=== PATIENT | female | born 1970 | race American Indian/Alaskan Native ===

== ENCOUNTER 2020-12-27 06:43 | Inpatient (IN) | payer MEDICARE ==
[2020-12-26 11:03] LABS: Basophils % (Auto) 0.3 % (0.0-1.8); Eosinophils # (Auto) 0.1 K/mm3 (0.0-0.4); Eosinophils % (Auto) 1.6 % (0.0-4.3); Hematocrit 34.3 % (30.3-42.9); Hemoglobin 12.1 gm/dl (10.1-14.3); Lymphocytes # (Auto) 1.5 K/mm3 (1.2-5.4); Lymphocytes % (Auto) 29.4 % (13.4-35.0); Mean Corpuscular HGB Conc 35 % (30-34); Mean Corpuscular Volume 83 fl (79-97); Monocytes # (Auto) 0.3 K/mm3 (0.0-0.8); Monocytes % (Auto) 6.1 % (0.0-7.3); Platelet Count 401 K/mm3 (140-440); Red Blood Count 4.14 M/mm3 (3.65-5.03); Red Cell Distribution Width 14.5 % (13.2-15.2)
[2020-12-26 11:22] LABS: Alanine Aminotransferase 20 units/L (7-56); Albumin 3.8 g/dL (3.9-5); Blood Urea Nitrogen 9 mg/dL (7-17); Hemolysis Index 0
[2020-12-26 11:24] LABS: BUN/Creatinine Ratio 15
--- NOTE | 2020-12-26 14:07 | Anesthesia Consultation ---
Anesthesia Consult and Med Hx Date of service: 12/27/20 - Airway Anesthetic Teeth Evaluation: Good ROM Head & Neck: Adequate Mental/Hyoid Distance: Adequate Mallampati Class: Class II Intubation Access Assessment: Probably Good - Pulmonary Exam CTA: Yes - Cardiac Exam Cardiac Exam: RRR - Pre-Operative Health Status ASA Pre-Surgery Classification: ASA2 Proposed Anesthetic Plan: General Nerve Block: TAP - Pulmonary Hx Smoking: No Hx Respiratory Symptoms: No - Cardiovascular System Hx Hypertension: No - Central Nervous System CVA: No - Endocrine Hx Renal Disease: No Hx Liver Disease: No Hx Insulin Dependent Diabetes: No Hx Non-Insulin Dependent Diabetes: No Hx Thyroid Disease: No - Hematic Hx Anemia: Yes - Other Systems Hx Obesity: Yes (BMI 33) - Additional Comments Anesthesia Medical History Comments: PMH RA on plaquenil. No hx steroid use. No hx anesthetic complications.
--- NOTE | 2020-12-26 22:13 | History and Physical Report ---
History of Present Illness Date of examination: 12/27/20 Date of admission: 12/27/2020 Chief complaint: I have fibroids History of present illness: Pt is a 50 year old who presents with complaint of uterine fibroids that are causing pain and bleeding. Pt has noted that symptoms have gotten worse with time and she is looking for curative therapy. Medications and Allergies Allergies Allergy/AdvReac Type Severity Reaction Status Date / Time No Known Allergies Allergy Unverified 12/19/20 14:58 Home Medications Medication Instructions Recorded Confirmed Last Taken Type Hydroxychloroquine [Plaquenil] 200 mg PO QDAY 12/19/20 12/19/20 Unknown History Indomethacin [Indocin] 15 mg PO Q8H 12/19/20 12/19/20 Unknown History Active Meds: Active Medications Acetaminophen (Acetaminophen 500 Mg Tab) 1,000 mg PO PREOP KRISTOPHER Stop: 12/27/20 20:00 Celecoxib (Celecoxib 200 Mg Cap) 200 mg PO PREOP NR Stop: 12/27/20 20:00 Fentanyl (Fentanyl 100 Mcg/2 Ml Inj) 100 mcg IV ONCE PRN PRN Reason: sedation for nerve block Stop: 12/27/20 20:00 Gabapentin (Gabapentin 300 Mg Cap) 300 mg PO PREOP NR Stop: 12/27/20 20:00 Lactated Ringer's (Lactated Ringers) 1,000 mls @ 100 mls/hr IV DIRECT KRISTOPHER Stop: 12/27/20 23:59 Cefazolin Sodium (Ancef/Sterile Water 2 Gm/20 Ml) 2 gm in 20 mls @ 80 mls/hr IV PREOP NR; Protocol Midazolam HCl (Midazolam 2 Mg/2 Ml Inj) 2 mg IV PREOP NR Stop: 12/27/20 20:00 Scopolamine (Scopolamine Transdermal Patch 72 Hr) 1 each TD PREOP NR Stop: 12/27/20 20:00 Exam Vital Signs Temp Pulse Resp BP Pulse Ox 97.8 F 86 18 126/90 99 12/26/20 10:30 12/26/20 10:30 12/26/20 10:30 12/26/20 10:30 12/26/20 10:30 - General physical appearance Positive: well developed, well nourished, no distress - Eyes Positive: PERRL, normal occular movement - Neck Positive: no masses, no bruits, trachea midline, no venous distension - Respiratory Positive: normal expansion, normal respiratory effort, clear to auscultation - Cardiovascular Rhythm: regular Heart Sounds: Present: S1 & S2. Absent: rub, click - Extremities Extremities: no ischemia, pulses symmetrical, No edema - Abdomen Abdomen: Present: soft, bowel sounds normal, masses - Genitourinary Female Genitourinary: masses (enlarged irregular uterus consistent with uterine fibroids) - Psychiatric Psychiatric: appropriate mood/affect Results - Labs 12/26/20 10:40 12/26/20 10:40 Abnormal lab results 12/26/20 12/26/20 Range/Units 10:40 10:40 MCHC 35 H (30-34) % Sodium 136 L (137-145) mmol/L Albumin 3.8 L (3.9-5) g/dL Diabetes panel 12/26/20 Range/Units 10:40 Sodium 136 L (137-145) mmol/L Potassium 4.0 (3.6-5.0) mmol/L Chloride 102.7 (98-107) mmol/L Carbon Dioxide 24 (22-30) mmol/L BUN 9 (7-17) mg/dL Creatinine 0.6 (0.6-1.2) mg/dL Glucose 92 (65-100) mg/dL Calcium 9.0 (8.4-10.2) mg/dL AST 13 (5-40) units/L ALT 20 (7-56) units/L Alkaline Phosphatase 104 (35-129) units/L Total Protein 7.3 (6.3-8.2) g/dL Albumin 3.8 L (3.9-5) g/dL Calcium panel 12/26/20 Range/Units 10:40 Calcium 9.0 (8.4-10.2) mg/dL Albumin 3.8 L (3.9-5) g/dL Pituitary panel 12/26/20 Range/Units 10:40 Sodium 136 L (137-145) mmol/L Potassium 4.0 (3.6-5.0) mmol/L Chloride 102.7 (98-107) mmol/L Carbon Dioxide 24 (22-30) mmol/L BUN 9 (7-17) mg/dL Creatinine 0.6 (0.6-1.2) mg/dL Glucose 92 (65-100) mg/dL Calcium 9.0 (8.4-10.2) mg/dL Adrenal panel 12/26/20 Range/Units 10:40 Sodium 136 L (137-145) mmol/L Potassium 4.0 (3.6-5.0) mmol/L Chloride 102.7 (98-107) mmol/L Carbon Dioxide 24 (22-30) mmol/L BUN 9 (7-17) mg/dL Creatinine 0.6 (0.6-1.2) mg/dL Glucose 92 (65-100) mg/dL Calcium 9.0 (8.4-10.2) mg/dL Total Bilirubin 0.20 (0.1-1.2) mg/dL AST 13 (5-40) units/L ALT 20 (7-56) units/L Alkaline Phosphatase 104 (35-129) units/L Total Protein 7.3 (6.3-8.2) g/dL Albumin 3.8 L (3.9-5) g/dL Assessment and Plan Pt here for abdominal myomectomy. consents signed and placed on chart. Pt understands risks and benefits. Will proceed with surgery
[~2020-12-27 06:43] MED LIST: ACETAMINOPHEN 500 MG TAB PO SCH; CELECOXIB 200 MG CAP PO NR; GABAPENTIN 300 MG CAP PO NR; LACTATED RINGERS 1,000 ML IV SCH; MIDAZOLAM 2 MG/2 ML INJ IV NR; SCOPOLAMINE TRANSDERMAL PATCH 72 HR TD NR; ceFAZolin/Water 2 GM/20 ML 2 GM/20 ML SYRINGE IV NR; fentaNYL 100 MCG/2 ML INJ IV PRN
[2020-12-27] MEDS ORDERED: BACTERIOSTATIC SODIUM CHLORIDE 0.9% 30 ML VIAL INFILTRATI ONE (06:58)
--- NOTE | 2020-12-27 07:16 | Anesthesia Day of Surgery ---
Anesthesia Day of Surgery - Day of Surgery Patient Examined: Yes Patient H&P Reviewed: Yes Patient is NPO: Yes
[2020-12-27] MEDS ORDERED: SODIUM CHLORIDE 0.9% 50 ML ONE (07:21)
[2020-12-27] MEDS ORDERED: CITRIC ACID-SOD CITRATE 500 ML IV ONE (07:21)
[2020-12-27] MEDS ORDERED: VASOPRESSIN 20 UNIT/1 ML INJ ONE (07:22)
[2020-12-27] MEDS ORDERED: BUPIVACAINE/PF (0.25%) 2.5 MG/ML 30 ML VIAL INFILTRATI ONE (07:26)
[2020-12-27] MEDS ORDERED: dexAMETHasone 4 MG/ML VIAL ONE (07:26)
[2020-12-27] MEDS ORDERED: dexAMETHasone 20 MG/5 ML VIAL ONE (07:29)
[2020-12-27] MEDS ORDERED: KETOROLAC 30 MG/1 ML INJ ONE (07:29)
[2020-12-27] MEDS ORDERED: ROCURONIUM 50 MG/5 ML INJ IV ONE ×2 (07:29→09:20)
[2020-12-27] MEDS ORDERED: LIDOCAINE MPF (2%) 20 MG/1 ML VIAL 5 ML ONE (07:29)
[2020-12-27] MEDS ORDERED: propofoL 200 MG/20 ML VIAL IV ONE (07:30)
[2020-12-27] MEDS ORDERED: SODIUM CHLORIDE 0.9% 50 ML IVPB IV ONE (07:40)
[2020-12-27] MEDS ORDERED: VASOPRESSIN 20 UNIT/1 ML INJ IM ONE (07:40)
[2020-12-27] MEDS ORDERED: SODIUM CHLORIDE 0.9% IRR 1,500 ML BOTTLE IR ONE (07:41)
[2020-12-27] MEDS ORDERED: ONDANSETRON 4 MG/2 ML INJ IV PRN ×2 (08:00→12:30)
[2020-12-27] MEDS ORDERED: HYDROmorphone 1 MG/1 ML INJ IV PRN (08:00)
[2020-12-27] MEDS ORDERED: GLYCOPYRROLATE 0.4 MG/2 ML INJ ONE (11:15)
[2020-12-27] MEDS ORDERED: NEOSTIGMINE 10MG/10 ML INJ MDV ONE (11:15)
[2020-12-27] MEDS ORDERED: LACTATED RINGERS 1,000 ML ONE ×3 (11:32→12:34)
--- NOTE | 2020-12-27 11:52 | Post Operative Note ---
Pre-op diagnosis: Uterine fibroids, menorrhagia, pelvic pain Post-op diagnosis: same Findings: Uterine fibroids of various shapes and sizes within the confines of an irregularly shaped enlarged uterus Procedure: Abdominal myomectomy Anesthesia: LULA Surgeon: RADHA BLANC Estimated blood loss: other (200) Pathology: list (Multiple fibroids of various sizes) Specimen disposition: to lab Condition: stable Disposition: PACU
--- NOTE | 2020-12-27 11:55 | Operative Report ---
Operative Report Operative Report: Preoperative diagnosis: Uterine fibroids Postoperative diagnosis: Same Procedure: Abdominal myomectomy Surgeon: Dr. Kelley Calvin Job Training Supervisor: EBL: 200 cc Urine output: 400 cc IV fluids: 1800 cc LR Cell saver return: 0 mL Findings: Markedly enlarged 18 week uterus secondary to multiple uterine fibroids of various sizes Specimens: Uterine fibroids Complications: None Procedure: The patient was admitted to the OR with IV running and in place. She was properly identified as herself. She was given general anesthesia without difficulty. She was then put a Borja catheter was in place and she was prepped and draped in normal sterile fashion. This incision was then made with the scalpel and carried to underlying fascia using the scalpel and the Bovie. Fascia was incised in midline and the incision was extended bilaterally using the curved Whitley scissors. The fascia was then dissected from the underlying rectus muscles in a series of sharp and blunt dissection. The peritoneum was entered sharply using the Metzenbaum scissors. The peritoneal incision was then extended superiorly and inferiorly. The uterus was grasped and delivered through the incision anteriorly. Multiple fibroids were noted some were pedunculated others were intramural. The largest fibroid appeared to be in the fundus of the uterus. At this point the uterus was injected with Pitressin solution in multiple areas totaling 25 cc. Using the Bovie latitudinal incision was made over the area of the largest fibroid. It was found to have some calcifications in its body. The fibroid was dissected from the underlying uterus using the Metzenbaum scissors and retraction. The fibroid appeared to be approximately 8 cm in diameter. The base of the fibroid was then closed in a running fashion with 0 Vicryl and the serosa was closed with 2-0 Vicryl in a baseball stitch. Once this area was close attention was turned to the area of the uterus. Multiple fibroids were taken of both those that were pedunculated in those that were intramural until in total 12 fibroids were removed. The areas underlying all fibroids were closed with 0 Vicryl in running fashion these were closed in multiple layers until the serosal layer which was closed with a baseball stitch. Pieces of Interceed were then placed over the external portions of the incisions. The specimens was handed off. The abdomen was then copiously irrigated with warm normal saline. Following this the uterus was replaced into the abdominal cavity. At this point the muscles were reapproximated in the midline using individual sutures of 0 Vicryl. Following this the fascia was closed in a running fashion using 0 Vicryl. Tissue was then copiously irrig ated. Skin was closed in a running fashion using 3-0 Monocryl. The sponge lap needle and instrument counts were correct 2. The patient tolerated the procedure well. She was taken to recovery in stable condition.
[2020-12-27] MEDS: KETOROLAC 30 MG/1 ML INJ IV SCH ×3 (12:10→23:49)
[2020-12-27] MEDS ORDERED: MORPHINE 2 MG/1 ML INJ IV PRN (12:30)
[2020-12-27] MEDS ORDERED: METOCLOPRAMIDE 10 MG/2 ML INJ IV PRN (12:30)
[2020-12-27] MEDS ORDERED: MAGNESIUM HYDROXIDE (MOM) ORAL LIQD UDC PO PRN (12:30)
[2020-12-27] MEDS ORDERED: ACETAMINOPHEN 325 MG TAB PO PRN (12:30)
[2020-12-27] MEDS: D5W/LACTATED RINGERS 1,000 ML IV SCH ×2 (13:22→23:49)
--- NOTE | 2020-12-27 14:28 | Post Anesthesia Evaluation ---
- Post Anesthesia Evaluation Patient Participated: Yes Airway Patent: Yes Stable Respiratory Function: Yes Nausea/Vomiting: No Temp > 96.8F: Yes Pain Manageable: Yes Adequeate Hydration: Yes Anesthesia Complications: No
[2020-12-27] MEDS: oxyCODONE /ACETAMINOPHEN 5-325MG TAB PO PRN ×2 (14:43→22:30)
[2020-12-27] MEDS: DOCUSATE SODIUM 100 MG CAP PO SCH (22:30)
[2020-12-28] MEDS: KETOROLAC 30 MG/1 ML INJ IV SCH (05:20)
[2020-12-28] MEDS: D5W/LACTATED RINGERS 1,000 ML IV SCH (08:15)
[2020-12-28] MEDS: IBUPROFEN 800 MG TAB PO PRN ×2 (08:15→22:23)
[2020-12-28] MEDS: oxyCODONE /ACETAMINOPHEN 5-325MG TAB PO PRN ×3 (10:06→20:06)
[2020-12-28] MEDS: DOCUSATE SODIUM 100 MG CAP PO SCH ×2 (10:07→22:22)
--- NOTE | 2020-12-28 17:55 | Progress Note ---
Assessment and Plan POD 1 s/p abdominal myomectomy. Doing well. Encourage ambulation . Will advance diet after flatus Subjective - Subjective Date of service: 12/28/20 Interval history: Pt is a 50 year old who is POD 1 s/p Abdominal myomectomy. No flatus yet. Doing well. Patient reports: appetite normal, voiding normally, pain well controlled, ambulating normally Objective - Vital Signs Latest vital signs: Vital Signs Temp Pulse Pulse Resp BP BP Pulse Ox 12/28/20 16:10 98 F 74 18 115/68 98 12/28/20 14:46 16 12/28/20 13:46 16 12/28/20 12:20 97.9 F 73 18 100/59 100 12/28/20 11:06 16 12/28/20 10:06 16 12/28/20 09:15 16 12/28/20 08:44 70 16 12/28/20 08:32 97.9 F 84 18 106/64 100 12/28/20 08:15 16 12/28/20 05:50 18 12/28/20 05:20 18 12/28/20 05:14 97.7 F 68 18 95/60 99 12/28/20 00:19 98.2 F 61 18 103/60 97 12/27/20 23:49 18 12/27/20 23:30 18 12/27/20 22:30 18 12/27/20 21:01 97.3 F L 64 18 98/52 100 Intake and Output 12/28/20 12/28/20 12/28/20 06:59 14:59 22:59 Intake Total 120 1000 Output Total 500 500 Balance -380 500 Intake: IV 1000 D5lr 1,000 ml @ 125 mls/ 1000 hr IV DIRECT [facility] Rx#: [id number] Intake, Free Water 120 Output: Urine 500 500 Indwelling Catheter 500 Void 500 Other: Total, Output Amount 500 500 Voiding Method Toilet # Voids Void 1 - Exam Cardiovascular: Present: Regular rate, Normal S1, Normal S2 Lungs: Present: Clear to auscultation, Normal air movement Abdomen: Present: normal appearance, soft, distention (slightly) Uterus: Present: normal, firm Extremities: Present: normal Incision: Present: normal, dry, intact, dressed - Labs Labs: Abnormal lab results 04/15/21 Range/Units 07:01 Hgb 9.0 L D (10.1-14.3) gm/dl Hct 27.0 L D (30.3-42.9) %
[2020-12-28] MEDS: SIMETHICONE 80 MG CHEW TAB PO PRN (18:12)
[2020-12-29] MEDS: oxyCODONE /ACETAMINOPHEN 5-325MG TAB PO PRN ×4 (05:15→23:13)
[2020-12-29] MEDS: DOCUSATE SODIUM 100 MG CAP PO SCH ×2 (10:34→23:13)
[2020-12-29] MEDS: SIMETHICONE 80 MG CHEW TAB PO PRN (11:54)
--- NOTE | 2020-12-29 17:35 | Progress Note ---
Assessment and Plan POD 2 s/p abdominal myomectomy. Pt has yet to pass flatus, but feels rumbling. Plan for discharge in the am and after flatus. Will advance diet Subjective - Subjective Date of service: 12/29/20 Interval history: Pt is a 50 year old who is POD 1 s/p Abdominal myomectomy. No flatus yet. Doing well. Patient reports: appetite normal, voiding normally, pain well controlled, ambulating normally, other (no flatus yet) Objective - Vital Signs Latest vital signs: Vital Signs Temp Pulse Resp BP BP Pulse Ox 12/29/20 16:31 77 123/78 100 12/29/20 16:30 98.6 F 18 12/29/20 08:30 98.0 F 77 18 125/76 97 12/29/20 06:04 97.8 F 83 18 109/62 95 12/29/20 01:30 97.9 F 74 20 125/65 12/28/20 20:41 98.4 F 68 18 114/77 97 Intake and Output 12/29/20 12/29/20 12/29/20 06:59 14:59 22:59 Intake Total 120 Balance 120 Intake: Intake, Free Water 120 Other: # Voids Void 2 - Exam Breasts: Present: deferred Cardiovascular: Present: Regular rate, Normal S1, Normal S2 Lungs: Present: Clear to auscultation, Normal air movement Abdomen: Present: normal appearance, soft Extremities: Present: normal Incision: Present: normal, dry, intact
--- NOTE | 2020-12-29 17:37 | Discharge Summary ---
Providers - Providers Date of Admission: 12/27/20 11:53 Date of discharge: 12/30/20 Attending physician: RADHA BLANC Hospitalization Reason for admission: other Procedure: other (abdominal myomectomy) Incision: normal, dry, intact Discharge diagnosis: other (uterine fibroids) Condition at discharge: Good Disposition: DC-01 TO HOME OR SELFCARE Plan - Discharge Medications Prescriptions: Docusate Sodium [Colace] 100 mg PO BID #60 capsule Ibuprofen [Motrin] 800 mg PO Q8HR PRN #40 tablet PRN Reason: Pain, Moderate (4-6) oxyCODONE /ACETAMINOPHEN [Percocet 5/325] 2 tab PO Q6HR PRN #40 tablet PRN Reason: Pain - Provider Discharge Summary Activity: routine, no sex for 6 weeks, no heavy lifting 4 weeks, no strenuous exercise Diet: routine Instructions: routine Additional instructions: [] Smoking cessation referral if applicable(refer to patient education folder for contact #) [] Refer to [facility]'s [facility] Booklet Call your doctor immediately for: * Fever > 100.5 * Heavy vaginal bleeding ( >1 pad per hour) * Severe persistent headache * Shortness of breath * Reddened, hot, painful area to leg or breast * Drainage or odor from incision. * Keep incision clean and dry at all times and follow doctor's instructions regarding bathing/showering - Follow up plan Follow up: DR GRICEL [Other] - 7 Days RADHA BLANC MD [Staff Physician] - 10 Days
[2020-12-30] MEDS: KETOROLAC 30 MG/1 ML INJ IV SCH (00:27)
[2020-12-30] MEDS: oxyCODONE /ACETAMINOPHEN 5-325MG TAB PO PRN ×2 (06:31→10:19)
[2020-12-30 09:53] VITALS: BP 114/75
[2020-12-30] MEDS: IBUPROFEN 800 MG TAB PO PRN (10:21)
[2020-12-30] MEDS: DOCUSATE SODIUM 100 MG CAP PO SCH (10:22)
== END 2020-12-30 17:47 | disposition home or self-care (01) | DRG 743 ==
LOC: OR 06:43 → OB 11:53
PROVIDERS: ADMIT Obstetrics & Gynecology; ATTEND Obstetrics & Gynecology
PROC: 0UB90ZZ Excision of Uterus, Open Approach (ICD-10-PCS; principal; 2020-12-27)
DX: D25.1 Intramural leiomyoma of uterus (principal); D25.2 Subserosal leiomyoma of uterus; E66.9 Obesity, unspecified; Z68.33 Body mass index [BMI] 33.0-33.9, adult; D64.9 Anemia, unspecified; Z79.899 Other long term (current) drug therapy; Z79.891 Long term (current) use of opiate analgesic; Z79.01 Long term (current) use of anticoagulants; N92.0 Excessive and frequent menstruation with regular cycle; Z20.822 Contact with and (suspected) exposure to COVID-19
CPT/HCPCS: 36415; 64450; 80053; 84703; 85014; 85018; 85025; 86850; 86900; 86901; 88304; 88305; G0378; C1765; J0690; J1100; J1170; J1885; J2250; J2270; J2405; J2704; J2710; J3010; J7120; J7121; U0003